=== PATIENT | female | born 1960 | race Caucasian/White ===

== ENCOUNTER → 2017-06-18 | Outpatient (CLI) | payer OTHER ==
[~2017-06-18] MED LIST: ACETAMINOPHEN PO; ANEXSIA 5/325 M1 TA1; CENTRUM SILVER PO; CYANOCOBAL1000 MCG/M INJ; DIFLUCAN PO; DIFLUCAN200 MG PO; DOCUSATE SODIU100 MG PO; FOLIC ACID1 MG PO; HYDROCODONE/APA1 T16 PO; LORTAB 7.5-3251 EACH PO; MIRALAX17 GM PO; ONDANSETRO4 MG/UDTAB PO; TYL325 PO; ZYVOX600 MG PO
--- NOTE | ~2017-06-18 | CT4 ---
[facility] A Service of [facility] RADIOLOGY TEXT RESULTS PATIENT: BELKYS CARTAGENA LOCATION: [facility] : 56 UNIT #: [id number] AGE: [address]: Beatriz Martell MD SEX: F ORDER DR: [id number] [facility] [address] [place], [place] [address] [id number] O MR#: [id number] Acc #: [id number] NAME: BELKYS CARTAGENA : 1960 SEX: F STUDY DATE/TIME: 06/18/2017 10:34 UNIT: [facility] ROOM: STUDY DESCRIPTION: CT Abd and Pelv Wo Cont Attending Physician: Beatriz Martell M.D., Ph.D. Referring Physician: Beatriz Martell M.D., Ph.D. Ordering Physician: Beatriz Martell M.D., Ph.D. Primary Care Physician: Aleksandar Hunter M.D. MEDICAL IMAGING REPORT This report is preliminary unless electronic signature is present EXAM CT abdomen and pelvis without contrast HISTORY Colon cancer, anemia. Follow-up fourth round of chemotherapy. COMPARISON 02/16/2017 TECHNIQUE Axial 5.0 mm images were obtained through the abdomen and pelvis without IV or oral contrast. Sagittal and coronal reconstructions were generated. This CT exam was performed with one or more of the following radiation dose reduction techniques: automatic exposure control, adjustment of mA and/or kV according to patient size, and iterative reconstruction. FINDINGS The lung bases are clear. The gallbladder has been removed. The liver, pancreas and adrenal glands are normal. A normal spleen is not visualized but there is residual splenic tissue that is lobular in appearance with multiple splenules in the left upper quadrant that are stable. The double-J ureteral stent on the right has been removed. There are bilateral nephrostomy tubes present with mild prominence of the renal pelvis. Prior study was done with contrast and it shows some tiny low density lesions developing in the upper pole of the right kidney and they are no visible on this unenhanced study. The aorta is normal in size. There is a mass in the abdominal wall on the right side abutting the cecum and this is increased significantly in size. In February it was 2.3 cm in diameter x 1.9 cm, now it is 5.4 x 3.4 cm. There is a mass in the deep pelvis that appears to be coming from the rectum and sigmoid colon region. It is a bulky mass that is difficult to give accurate measurements on but [facility] A Service of [facility] RADIOLOGY TEXT RESULTS PATIENT: BELKYS CARTAGENA LOCATION: [facility] : 56 UNIT #: [id number] AGE: [address]: Beatriz Martell MD SEX: F ORDER DR: it is clearly increased in size. At the same level in the pelvis previously it was about 10.6 x 7.5 cm and now it is about 12.3 x 8.9 cm. In the lower rectum it is circumferential around the lumen that has contrast within it. There is an ostomy site in the left mid abdomen. There is mild distension of the small bowel to the same degree as seen previously. There are mesenteric and retroperitoneal lymph nodes present. These have increased slightly in size and measure up to about 18.0 mm. IMPRESSION 1. It is a complicated study and it is limited by lack of IV and oral contrast but it is clear that the tumor mass in the pelvis has increased since the prior study. There is a right lateral abdominal wall mass that has gone from about 1.9 x 2.3 cm up to 3.4 x 5.4 cm and the central mass is apparently arising from the rectum. It has increased in size as well having gone from about 10.6 x 7.5 cm up to 12.3 x 8.9 cm. The rectal tube has been removed. The right double-J ureteral stent has been removed. There are bilateral ureteral stents. 2. There are small nodes in the mesentery in the retroperitoneum which are slightly larger than the prior study. They are pathologic in appearance. 3. There is slight small bowel distension. Dictated by... Isidro Knott M.D. THIS IS AN ELECTRONICALLY VERIFIED REPORT Isidro Knott M.D. at 06/18/2017 7:22 PM Brianda TD: 06/18/2017 15:40 JOB #: [id number] MEDICAL IMAGING REPORT Page 1 of 1 COPY
[2017-06-18 11:36] LABS: POC - CREATININE 1.74 mg/dL (0.44-1.03)
[2017-06-18 11:36] LABS: POC - CREATININE 1.67 mg/dL (0.44-1.03)
== END | disposition home or self-care (01) ==
LOC: CCAT 09:20
PROVIDERS: Internal Medicine Hematology & Oncology
DX: C20 Malignant neoplasm of rectum (principal); D53.9 Nutritional anemia, unspecified; K90.9 Intestinal malabsorption, unspecified; D50.8 Other iron deficiency anemias; R19.00 Intra-abdominal and pelvic swelling, mass and lump, unspecified site
CPT/HCPCS: 74176; 82565